=== PATIENT | female | born 1980 | race Caucasian/White ===

== ENCOUNTER → 2016-10-11 | Outpatient (CLI) | payer OTHER ==
[2016-07-04 19:25] VITALS: BP 113/58
[~2016-10-11] MED LIST: HYDR-971 PO; NAPR500T PO
[2016-10-11 12:11] LABS: HEMATOCRIT 39.4 % (36.0-47.0); HEMOGLOBIN 12.8 g/dL (12.0-15.5)
== END | disposition home or self-care (01) ==
LOC: LAB 10:38
PROVIDERS: ATTEND Family Medicine
DX: Z34.82 Encounter for supervision of other normal pregnancy, second trimester (principal)
CPT/HCPCS: 36415; 82950; 85014; 85018

== ENCOUNTER → 2016-10-25 | Outpatient (CLI) | payer OTHER ==
[2016-07-04 19:25] VITALS: BP 113/58
--- NOTE | 2016-10-25 11:26 | RAD ---
Exam performed: OB sonogram second trimester. History: Follow-up. Perigestational hemorrhage. Date of service: 10/25/16. Comparison: Limited OB ultrasound from 09/20/16. Technique: Transabdominal. Findings: Single intrauterine fetus is seen in breech presentation. maturity is as follows. BPD measures 7.32 cm corresponding to 29 weeks and 3 days. Head circumference 26.74 cm corresponding to 29 weeks and 1 day Abdominal circumference 24.25 cm corresponding to 28 weeks 4 days Femur length measures 5.43 cm corresponding to 28 weeks and 5 days. Composite maturity is 29 weeks and 0 days with a EDC of 01/10/27. age based on LMP of 04/11/16 is 28 weeks and 1 day with a EDC of 01/20/17. heart rate measures 1 65 bpm. Cervix length measures 4.3 cm. Placenta is anterior. Adequate amniotic fluid volume with MEHDI of 15.6 cm. A small perigestational hemorrhage is redemonstrated which measures 2 mm in AP dimension and approximately 7 cm in length and is unchanged. Impression: 1. Single live intrauterine fetus is seen in breech presentation of maturity 29 weeks and 0 days with a heart rate of 1 65 bpm. 2. Small lucy gestational hemorrhage appears similar.
== END | disposition home or self-care (01) ==
LOC: US 09:43
PROVIDERS: ATTEND Family Medicine
DX: Z34.82 Encounter for supervision of other normal pregnancy, second trimester (principal); Z3A.29 29 weeks gestation of pregnancy
CPT/HCPCS: 76805

== ENCOUNTER → 2016-12-02 | Outpatient (CLI) | payer OTHER ==
[2016-07-04 19:25] VITALS: BP 113/58
--- NOTE | 2016-12-02 09:45 | RAD ---
EXAM: Obstructive ultrasound. HISTORY: High-risk . Decreased amniotic fluid index. COMPARISON: 11/29/2016. FINDINGS: Sonographic evaluation of the uterus and fetus was performed transabdominally. There is a single fetus in vertex presentation. Estimated gestational age based on measurements is 34 weeks 0 days. heart rate is 145 bpm. Estimated weight is 2325 g. Individual measurements are commensurate. The placenta is anterior and grade 2/3. Amniotic fluid index is 12.3 cm. Intracranial images reveal no hydrocephalus. Images of the kidneys reveal no hydronephrosis. The renal collecting systems measure 4 mm bilaterally. The bladder is distended and was not noted in the during the examination. No keyhole sign is seen. The stomach is visualized. The heart is four-chamber. IMPRESSION: 1. Single fetus in vertex presentation. Estimated gestational age based on measurements 34 weeks 0 days. heart rate 145 bpm. 2. Amniotic fluid index 12.3 cm. 2. The bladder is mildly distended and did not empty during the study. No keyhole sign is appreciable. Attention on further follow-up. No hydronephrosis.
== END | disposition home or self-care (01) ==
LOC: US 07:44
PROVIDERS: ATTEND Family Medicine
DX: O28.8 Other abnormal findings on antenatal screening of mother (principal); R51 Headache; Z3A.34 34 weeks gestation of pregnancy
CPT/HCPCS: 76816

== ENCOUNTER 2017-01-16 15:46 | Day surgery (SDC) | payer OTHER ==
[~2017-01-16] VITALS: Ht 170.2 cm; Wt 61.2 kg
[~2017-01-16 15:46] MED LIST changes: +CEFAZOLIN 2GM PREMIX 50 ML IV PRN; +FENTANYL PF 100 MCG/2 ML VIAL. IV PRN; +HYDROMORPHONE 2 MG/ML VIAL. IV PRN; +IV RINGERS,LACTATED 1000ML 1,000 ML IV SCH; +LIDOCAINE 1% 1 ML SYRINGE. ID PRN; +MORPHINE SULFATE 2 MG/ML DISP.SYRIN. IV PRN; +ONDANSETRON PF 4 MG/2 ML VIAL. IV PRN; +PROCHLORPERAZINE 10 MG/2 ML VIAL. IV PRN
[2017-01-16] MEDS ORDERED: OXYTOCIN 10 UNIT/ML VIAL. ONE (16:35)
[2017-01-16] MEDS ORDERED: VASOPRESSIN 20 UNIT/ML VIAL. ONE (16:35)
[2017-01-16] MEDS ORDERED: LIDOCAINE 1% PF 5 ML VIAL. ONE (17:04)
[2017-01-16] MEDS ORDERED: PROPOFOL 20 ML IV ONE (17:04)
[2017-01-16] MEDS ORDERED: FENTANYL PF 100 MCG/2 ML VIAL. ONE (17:04)
[2017-01-16] MEDS ORDERED: SEVOFLURANE UP TO 15 MINUTES. IH ONE (17:40)
[2017-01-16] MEDS ORDERED: DEXAMETHASONE SOD PHOS 20 MG/5 ML VIAL. ONE (17:40)
[2017-01-16] MEDS ORDERED: ONDANSETRON PF 4 MG/2 ML VIAL. ONE (17:40)
--- NOTE | 2017-01-16 18:02 | PDOC ---
BRIEF OPERATIVE NOTE Pre-Op Diagnosis Retained placenta Post-Op Diagnosis Same Procedure Performed Suction D&C Surgeon Dr. Alexander Anesthesia Type: General Blood Loss 100 ml Specimens Obtained retained placenta and blood products Findings uterus with retained placenta Complications none Additional Remarks pt. YOLIE Priest Jr, MD Jan 16, 2017 18:02
--- NOTE | 2017-01-16 18:03 | DISCH ---
DISCHARGE INSTRUCTIONS Condition on Discharge Condition on Discharge: Stable Activity After Discharge Activity Instructions for Disc: Activity as tolerated Lifting Instructions after Dis: No heavy lifting Driving Instructions after Dis: Do not drive today Diet after Discharge Diet after Discharge: Regular Contacting the DRTimothy after DC Call your doctor for: Concerns you may have Follow-Up Follow up with: Dr. Alexander in 1 week. YOLIE ALEXANDER Jr, MD Jan 16, 2017 18:03
[2017-01-16] MEDS: FENTANYL PF 100 MCG/2 ML VIAL. IV PRN ×2 (18:30→18:44)
[2017-01-16] MEDS ORDERED: OXYC-323 PO (19:00)
[2017-01-16] MEDS ORDERED: OXYCODONE/APAP 5/325 TABLET. PO ONE (19:15)
[2017-01-16 19:50] VITALS: BP 103/66
--- NOTE | 2017-01-16 22:58 | OP ---
DATE OF SURGERY: PREOPERATIVE DIAGNOSIS: Retained placenta. POSTOPERATIVE DIAGNOSIS: Retained placenta. PROCEDURE: Suction D and C. SURGEON: Yolie Alexander M.D. ANESTHESIA: GETA. ESTIMATED BLOOD LOSS: 100 mL. COMPLICATIONS: None. FINDINGS: Retained placenta and blood products. SUMMARY: A 36-year-old who is 4-5 weeks status post vaginal delivery who continued to have off and on vaginal bleeding. Pelvic sonogram indicated retained placental products. She was counseled on the need for a suction D and C, risks, benefits and expectations and voiced a clear understanding to proceed. DESCRIPTION OF PROCEDURE: The patient was taken to surgery suite and placed in dorsal lithotomy position, was prepped with Betadine solution for vaginal prep, draped in sterile fashion. After adequate anesthesia, weighted speculum and curved Ev placed vaginally. Anterior lip of the cervix grasped with a single tooth tenaculum. Cervix was dilated with Magda dilators up to size 8 curved tip. Suction curette was utilized with pressure of 60 cm of mercury rotated in a circular fashion, removing blood products as well as placental tissue that was retained from delivery. Sharp curettage took place until a fine gritty surface was palpated circumferentially. Suction curet was passed once again to remove additional blood products and tissue. The single-toothed tenaculum was then removed. Uterus palpated firm. A 10 units of Pitocin were added to the IV fluids, weighted speculum was removed as well. The patient tolerated procedure well and was taken to recovery room in stable condition. Sponge and needle count correct x 3. YOLIE ALEXANDER MD DR: VINH/jamil JOB#: [id number] / [id number]
== END 2017-01-16 20:00 | disposition home or self-care (01) ==
LOC: SURG 15:46
PROVIDERS: ATTEND Obstetrics & Gynecology
DX: O73.0 Retained placenta without hemorrhage (principal); Z87.442 Personal history of urinary calculi
CPT/HCPCS: 59820; J0690; J1100; J2405; J2590; J2704; J3010; J3490

== ENCOUNTER → 2017-02-07 | Outpatient (CLI) | payer OTHER ==
[2017-01-16 19:50] VITALS: BP 103/66
[~2017-02-07] MED LIST changes: -CEFAZOLIN 2GM PREMIX 50 ML IV PRN; -FENTANYL PF 100 MCG/2 ML VIAL. IV PRN; -HYDROMORPHONE 2 MG/ML VIAL. IV PRN; -IV RINGERS,LACTATED 1000ML 1,000 ML IV SCH; -LIDOCAINE 1% 1 ML SYRINGE. ID PRN; -MORPHINE SULFATE 2 MG/ML DISP.SYRIN. IV PRN; -ONDANSETRON PF 4 MG/2 ML VIAL. IV PRN; +OXYC-323 PO; -PROCHLORPERAZINE 10 MG/2 ML VIAL. IV PRN
[2017-02-07 11:01] LABS: ALBUMIN 3.5 g/dL (3.4-5.0); ALBUMIN/GLOBULIN RATIO 0.9 (1.0-1.7); CALCIUM 8.9 mg/dL (8.5-10.1); CREATININE 0.8 mg/dL (0.6-1.0); GFR 82.1; POTASSIUM 4.1 mmol/L (3.5-5.1); TOTAL BILIRUBIN 0.5 mg/dL (0.2-1.0); TOTAL PROTEIN 7.2 g/dL (6.4-8.2)
== END | disposition home or self-care (01) ==
LOC: LAB 09:14
PROVIDERS: ATTEND Family Medicine
DX: O26.613 Liver and biliary tract disorders in pregnancy, third trimester (principal)
CPT/HCPCS: 36415; 80053

== ENCOUNTER 2017-04-12 09:15 | Emergency (ER) | payer OTHER ==
[~2017-04-12] VITALS: Ht 170.2 cm; Wt 54.4 kg
--- NOTE | 2017-04-12 09:22 | PHYS DOC ---
Past Medical History Past Medical History: Other Additional Past Medical Histor: Kidney Stones Past Surgical History: Other Additional Past Surgical Histo: ovarian cyst, D&C February 2016 Alcohol Use: None Drug Use: None Adult General Chief Complaint Chief Complaint: SORE THROAT HPI HPI Patient is a 37 year old female who presents with sore throat, strep teeth fevers, nausea. She states her symptoms started to 3 days ago. She states she feels pressure in her ears, she feels hot and cold at times but has not had chance to check her temperature. She states it hurts when she tries to swallow but she's not having troubles breathing, denies any change in her voice. She is worried about strep throat. She denies any nuchal rigidity or confusion. Review of Systems Review of Systems Constitutional: Denies fever or chills [] Eyes: Denies change in visual acuity, redness, or eye pain [] HENT: Denies nasal congestion, positive for sore throat [] Respiratory: Denies cough or shortness of breath [] Cardiovascular: No additional information not addressed in HPI [] GI: Denies abdominal pain, nausea, vomiting, bloody stools or diarrhea [] : Denies dysuria or hematuria [] Musculoskeletal: Denies back pain or joint pain [] Integument: Denies rash or skin lesions [] Neurologic: Denies headache, focal weakness or sensory changes [] Endocrine: Denies polyuria or polydipsia [] Current Medications Current Medications Current Medications Medications (Trade) Dose Ordered Sig/Deisy Start Time Stop Time Status Last Admin Dose Admin Ondansetron HCl (Zofran Odt) 4 mg 1X ONCE 04/12/17 09:45 04/12/17 09:46 DC 04/12/17 09:42 4 MG Penicillin G Benzathine (Bicillin L-A) 1,200,000 unit 1X ONCE 04/12/17 10:00 04/12/17 10:01 DC 04/12/17 09:56 1,200,000 UNIT Allergies Allergies Allergies Coded Allergies Type Severity Reaction Last Updated Verified No Known Drug Allergies 01/13/17 No Physical Exam Physical Exam Constitutional: Well developed, well nourished, no acute distress, non-toxic appearance. [] HENT: Normocephalic, atraumatic, bilateral external ears normal, oropharynx moist, no oral exudates, nose normal. Posterior pharynx erythematous, no exudates appreciated, tender to palpation over the right submandibular lymph node Eyes: PERRLA, EOMI, conjunctiva normal, no discharge. [] Neck: Normal range of motion, no tenderness, supple, no stridor. [] Cardiovascular:Heart rate regular rhythm, no murmur [] Lungs & Thorax: Bilateral breath sounds clear to auscultation [] Abdomen: Bowel sounds normal, soft, no tenderness, no masses, no pulsatile masses. [] Skin: Warm, dry, no erythema, no rash. [] Back: No tenderness, no CVA tenderness. [] Extremities: No tenderness, no cyanosis, no clubbing, ROM intact, no edema. [] Neurologic: Alert and oriented X 3, normal motor function, normal sensory function, no focal deficits noted. [] Psychologic: Affect normal, judgement normal, mood normal. [] Current Patient Data Vital Signs Vital Signs Date Time Temp Pulse Resp B/P (MAP) Pulse Ox O2 Delivery O2 Flow Rate FiO2 04/12/17 09:25 97.7 106 14 98 Room Air 97.7 EKG EKG [] Radiology/Procedures Radiology/Procedures [] Impressions: Strep pharyngitis Course & Med Decision Making Course & Med Decision Making Pertinent Labs and Imaging studies reviewed. (See chart for details) Vitals are stable, she does not appear to be ill appearing. Her throat is positive, we'll treat with 1.2 million units of Bicillin, 8 mg by mouth Decadron , ODT Zofran and send her home with a prescription for ODT Zofran. Return precautions given she is agreeable Plan B discharged in stable condition this time. Dragon Disclaimer Dragon Disclaimer This electronic medical record was generated, in whole or in part, using a voice recognition dictation system. Departure Departure Impression: Primary Impression: Strep pharyngitis Disposition: 01 HOME, SELF-CARE Condition: STABLE Referrals: ALVINA ARCINIEGA MD (PCP) Patient Instructions: Strep Throat Additional Instructions: You were seen today for your sore throat and it is positive for strep. Your given a shot of penicillin, and also 8 mg of Decadron which is a steroid.. This should help you resolved your symptoms sooner. Turn the ER for continued pain, fevers, uncontrolled nausea or vomiting. Your being discharged with prescription of oral dissolvable tablets of Zofran to help with her nausea. Scripts Ondansetron Hcl (ZOFRAN) 4 Mg Tablet 1 TAB PO PRN Q6-8HRS, #5 TAB Prov: TRELL BARNETT MD 04/12/17 TRELL BARNETT MD Apr 12, 2017 09:22
[2017-04-12 09:25] VITALS: BP 101/72
[2017-04-12] MEDS ORDERED: ONDANSETRON ODT 4 MG TAB.RAPDIS. PO ONE (09:45)
[2017-04-12] MEDS ORDERED: PENICILLIN G BENZATHINE LA 1,200,000 UNIT/2 ML DISP.SYRIN. IM ONE (10:00)
[2017-04-12] MEDS ORDERED: ONDA4TAB7 PO (10:13)
[2017-04-12 10:17] LABS: NEGATIVE OBC STREP NEG; POSITIVE OBC STREP POS
[2017-04-12] MEDS ORDERED: DEXAMETHASONE 4 MG TABLET PO STA (10:18)
== END 2017-04-12 10:30 | disposition home or self-care (01) ==
LOC: ER 09:15
DX: J02.0 Streptococcal pharyngitis (principal); Z87.442 Personal history of urinary calculi
CPT/HCPCS: 87880; 96372; 99283; J0561; J8540; Q0162

== ENCOUNTER 2017-10-19 07:34 | Day surgery (SDC) | payer OTHER ==
[2017-10-19] MEDS: IV RINGERS,LACTATED 1000ML 1,000 ML IV ×2 (07:00→11:20)
[~2017-10-19 07:34] MED LIST changes: -HYDR-971 PO; +HYDROmorphone 2 MG/ML VIAL IV; +LIDOCAINE 1% PF 2 ML VIAL. ID; +MORPHINE SULFATE 2 MG/ML DISP.SYRIN. IV; -NAPR500T PO; +ONDANSETRON PF 4 MG/2 ML VIAL. IV; -OXYC-323 PO; +PROCHLORPERAZINE 10 MG/2 ML VIAL. IV; +fentaNYL PF VIAL 100 MCG/2 ML VIAL IV
[2017-10-19 08:18] LABS: NEG OBC UR NEG; POS OBC UR POS; U PREG PATIENT NEGATIVE (NEG)
[2017-10-19] MEDS ORDERED: ONDANSETRON PF 4 MG/2 ML VIAL. (09:30)
[2017-10-19] MEDS ORDERED: DEXAMETHASONE SOD PHOS 20 MG/5 ML VIAL. (09:30)
[2017-10-19] MEDS ORDERED: MIDAZOLAM HCL/PF 2 MG/2 ML VIAL. (09:30)
[2017-10-19] MEDS ORDERED: PROPOFOL 20 ML IV (09:30)
[2017-10-19] MEDS ORDERED: fentaNYL PF VIAL 100 MCG/2 ML VIAL (09:30)
[2017-10-19] MEDS ORDERED: FAMOTIDINE 20 MG/2 ML VIAL (10:32)
[2017-10-19] MEDS ORDERED: KETOROLAC 30 MG/ML INJ FOR OR. INJ (10:32)
[2017-10-19] MEDS ORDERED: PHENYLEPHRINE in 0.9% NACL PF 1 MG/10 ML SYRINGE. IV (10:32)
[2017-10-19] MEDS ORDERED: SEVOFLURANE 31 TO 60 MINUTES. IH (10:47)
[2017-10-19] MEDS: SILVER NITRATE STICK TP (10:50)
[2017-10-19] MEDS: oxyCODONE/APAP 5/325 1 TAB TABLET PO (11:59)
== END 2017-10-19 12:40 | disposition home or self-care (01) ==
LOC: SURG 07:34
DX: N93.8 Other specified abnormal uterine and vaginal bleeding (principal); Z87.442 Personal history of urinary calculi
CPT/HCPCS: 58558; 81025; 88305; J0690; J1100; J1885; J2250; J2370; J2405; J2704; J3010; S0028

== ENCOUNTER → 2018-04-17 | Outpatient (CLI) | payer OTHER ==
[2017-10-19 12:05] VITALS: BP 105/66
[~2018-04-17] MED LIST changes: +HYDR-971 PO; -HYDROmorphone 2 MG/ML VIAL IV; -LIDOCAINE 1% PF 2 ML VIAL. ID; -MORPHINE SULFATE 2 MG/ML DISP.SYRIN. IV; +NAPR-683 PO; +ONDA4TAB7 PO; -ONDANSETRON PF 4 MG/2 ML VIAL. IV; +OXYC-323 PO; -PROCHLORPERAZINE 10 MG/2 ML VIAL. IV; -fentaNYL PF VIAL 100 MCG/2 ML VIAL IV
[2018-04-17 11:31] LABS: ALBUMIN 3.7 g/dL (3.4-5.0); DIRECT BILIRUBIN 0.1 mg/dL (0.0-0.2); TOTAL BILIRUBIN 0.3 mg/dL (0.2-1.0); TOTAL PROTEIN 7.6 g/dL (6.4-8.2)
== END | disposition home or self-care (01) ==
LOC: LAB 10:27
PROVIDERS: ATTEND Family Medicine
DX: E05.90 Thyrotoxicosis, unspecified without thyrotoxic crisis or storm (principal); Z68.1 Body mass index [BMI] 19.9 or less, adult
CPT/HCPCS: 36415; 80076; 82607; 84436; 84443

== ENCOUNTER → 2018-08-14 | Outpatient (CLI) | payer OTHER ==
[2017-10-19 12:05] VITALS: BP 105/66
[~2018-08-14] MED LIST changes: +HYDR-3164 PO; -HYDR-971 PO
[2018-08-14 12:53] LABS: BASO % 0 % (0-3); EOS # 0.3 x10^3/uL (0.0-0.7); EOS % 4 % (0-3); HEMATOCRIT 45.7 % (36.0-47.0); HEMOGLOBIN 15.6 g/dL (12.0-15.5); LYMPH # 1.9 x10^3/uL (1.0-4.8); LYMPH % 21 % (24-48); MEAN CORPUSCULAR HEMOGLOBIN 29 pg (25-35); MEAN CORPUSCULAR HGB CONC 34 g/dL (31-37); MEAN CORPUSCULAR VOLUME 86 fL (79-100); MONO # 0.4 x10^3/uL (0.0-1.1); MONO % 4 % (0-9); NEUT # 6.3 x10^3uL (1.8-7.7); NEUT % 71 % (31-73); PLATELET COUNT 180 x10^3/uL (140-400); RED BLOOD COUNT 5.32 x10^6/uL (3.50-5.40); RED CELL DISTRIBUTION WIDTH 13.2 % (11.5-14.5); WHITE BLOOD COUNT 8.9 x10^3/uL (4.0-11.0)
[2018-08-14 13:11] LABS: ALBUMIN 4.5 g/dL (3.4-5.0); ALBUMIN/GLOBULIN RATIO 1.2 (1.0-1.7); CALCIUM 9.8 mg/dL (8.5-10.1); CREATININE 0.8 mg/dL (0.6-1.0); GFR 81.2; POTASSIUM 4.2 mmol/L (3.5-5.1); TOTAL BILIRUBIN 0.6 mg/dL (0.2-1.0); TOTAL PROTEIN 8.2 g/dL (6.4-8.2)
[2018-08-14 13:19] LABS: FREE T4 1.01 ng/dL (0.76-1.46); THYROID STIM HORMONE (TSH) 0.963 uIU/mL (0.358-3.74)
== END | disposition home or self-care (01) ==
LOC: LAB 12:16
PROVIDERS: ATTEND Family Medicine
DX: E05.90 Thyrotoxicosis, unspecified without thyrotoxic crisis or storm (principal); R00.2 Palpitations
CPT/HCPCS: 36415; 80053; 82607; 84439; 84443; 85025

== ENCOUNTER → 2018-11-22 | Outpatient (CLI) | payer OTHER ==
[2018-10-28 22:05] VITALS: BP 140/77
[~2018-11-22] MED LIST changes: -OXYC-323 PO; +OXYC1TAB15 PO
--- NOTE | 2018-11-22 11:45 | CARD ---
MR#: [id number] Date of Study: 11/22/2018 Ordering Physician: YESSY WINTER, Referring Physician: YESSY WINTER Tech: Caprice Ahuja RDCS APPROVED REPORT EXAM: Two-dimensional and M-mode echocardiogram with Doppler and color Doppler. Other Information Quality : AverageHR: 76bpm Rhythm : NSR INDICATION Palpitations 2D DIMENSIONS RVDd2.9 (2.9-3.5cm)Left Atrium(2D)2.5 (1.6-4.0cm) IVSd0.5 (0.7-1.1cm)Aortic Root(2D)2.5 (2.0-3.7cm) LVDd4.8 (3.9-5.9cm)LVOT Diameter1.9 (1.8-2.4cm) PWd0.6 (0.7-1.1cm)LVDs3.5 (2.5-4.0cm) FS (%) 28.2 %SV59.7 ml LVEF(%)54.4 (>50%) Aortic Valve AoV Peak Addy.124.3cm/sAoV VTI21.5cm AO Peak GR.6.2mmHgLVOT Peak Addy.103.4cm/s AO Mean GR.2mmHgAVA (VMAX)2.47cm2 RAHUL (VTI)2.50cm2 Mitral Valve MV E Gedhhlby13.8cm/sMV DECEL [id number] MV A Okksixmk45.4cm/sE/A Ratio1.6 MV A [id number] Pulmonary Valve PV Peak Fxrmjfvg90.0cm/s LEFT VENTRICLE The left ventricle is normal size. There is normal left ventricular wall thickness. The left ventricu lar systolic function is normal. The Ejection Fraction is 55-60%. There is normal LV segmental wall m otion. The left ventricular diastolic function and filling is normal for age. RIGHT VENTRICLE The right ventricle is normal size. There is normal right ventricular wall thickness. The right ventr icular systolic function is normal. ATRIA The left atrium size is normal. The right atrium size is normal. The interatrial septum is intact wit h no evidence for an atrial septal defect or patent foramen ovale as noted on 2-D or Doppler imaging. AORTIC VALVE The aortic valve is normal in structure and function. The aortic valve is trileaflet. Doppler and Col or Flow revealed no significant aortic regurgitation. There is no significant aortic valvular stenosi s. MITRAL VALVE The mitral valve is thickened but opens well. A borderline mitral valve prolapse is present. There is no mitral valve stenosis. Doppler and Color-flow revealed trace mitral regurgitation. TRICUSPID VALVE The tricuspid valve is normal in structure and function. Doppler and Color Flow revealed no tricuspid valve regurgitation noted. There is no tricuspid valve prolapse or vegetation. There is no tricuspid valve stenosis. PULMONIC VALVE The pulmonary valve is normal in structure and function. Doppler and Color Flow revealed no pulmonic valvular regurgitation. There is no pulmonic valvular stenosis. GREAT VESSELS The aortic root is normal in size. The ascending aorta is normal in size. The IVC is normal in size a nd collapses >50% with inspiration. PERICARDIAL EFFUSION There is no evidence of significant pericardial effusion. Critical Notification Critical Value: No <Conclusion> The left ventricular systolic function is normal. The Ejection Fraction is 55-60%. There is normal LV segmental wall motion. Trace mitral regurgitation. There is no evidence of significant pericardial effusion. Signed by : Yessy Winter, Electronically Approved : 11/22/2018 11:44:33
== END | disposition home or self-care (01) ==
LOC: ECHO 09:41
PROVIDERS: ATTEND Internal Medicine Cardiovascular Disease
DX: R00.2 Palpitations (principal)
CPT/HCPCS: 93306

== ENCOUNTER → 2019-08-13 | Outpatient (CLI) | payer OTHER ==
[2018-10-28 22:05] VITALS: BP 140/77
== END | disposition home or self-care (01) ==
LOC: SPEC 11:40
PROVIDERS: ATTEND Obstetrics & Gynecology
DX: Z01.419 Encounter for gynecological examination (general) (routine) without abnormal findings (principal)
CPT/HCPCS: 88175

== ENCOUNTER → 2019-09-02 | Outpatient (CLI) | payer OTHER ==
[2018-10-28 22:05] VITALS: BP 140/77
[~2019-09-02] MED LIST changes: +IOHEXOL 300 MG/ML 100ML VIAL. INT CAT ONE
--- NOTE | 2019-09-02 07:55 | RAD ---
Examination: PELVIS W/TV History: Pelvic pain Comparison/Correlation: None Findings: Transabdominal and transvaginal pelvic ultrasound exam was performed. Transvaginal technique was utilized to better assess the adnexal structures. Uterus measures 6.7 cm x 5.2 cm x 2.8 cm. Myometrium is unremarkable. Endometrial thickness is 1.1 cm noted. Minimal fluid is present within the endometrial cavity. Right ovary measures 3.8 cm x 1.7 cm by 1.6 cm left ovary measures 2.9 cm x 2 cm x 2.1 cm. Ovarian flow bilaterally is evident. Adnexal follicles are present bilaterally measuring up to 1.5 cm. No pelvic free fluid. Impression: Small amount of fluid in the endometrial cavity of indeterminate significance. No intrauterine gestation identified. Adnexal follicles or physiologic in appearance. Electronically signed by: Zacarias Craig MD (09/02/2019 7:52 AM) [facility]
[2019-09-02 09:19] LABS: PREG TEST PT QUAL NEGATIVE (NEG)
--- NOTE | 2019-09-02 12:54 | RAD ---
Examination: HYSTEROSALPINGOGRAM W/INJ History: Irregular menses. Asherman's syndrome. Comparison/Correlation: 09/02/2019 pelvic ultrasound exam Findings: Risks and benefits of hysterosalpingography were discussed with the patient and informed consent was obtained. Fluoroscopy was utilized for 1 minute. A total of 9 images were acquired. Preliminary image demonstrates radiopaque density involving the left pelvic region. Correlate with previous intervention. Cleansing with Betadine was performed at the external genitalia. Speculum was placed into the vagina. Cleansing was then performed about the cervical os with Betadine coated swabs and with gauze soaked with Betadine. Catheter was placed into the cervical os. The balloon was inflated with fluid. Then, contrast was injected into the uterine cavity. Spillage of contrast into the right and left fallopian tubes and peritoneal cavity bilaterally as well delineated. The uterine volume is small in size. Irregular contour of the internal lining of the fallopian tubes is evident distally. No occlusive or significant filling defects identified within the uterine cavity upon deflation the balloon and removal of the catheter. Contrast is noted to follow along the course of the cervical os into vagina upon removal of the catheter. Impression: Fallopian tubes are patent although somewhat irregular contour is noted within the fallopian tube intraluminally bilaterally. Uterine volume is small although no significant filling defects are evident. No definite septations evident. Electronically signed by: Zacarias Craig MD (09/02/2019 12:51 PM) [facility]
== END | disposition home or self-care (01) ==
LOC: US 06:45
PROVIDERS: ATTEND Obstetrics & Gynecology
DX: N85.6 Intrauterine synechiae (principal); N92.6 Irregular menstruation, unspecified
CPT/HCPCS: 58340; 74740; 76830; 76856; 84703; Q9967

== ENCOUNTER → 2019-09-30 | Outpatient (CLI) | payer OTHER ==
[2018-10-28 22:05] VITALS: BP 140/77
[~2019-09-30] MED LIST changes: -IOHEXOL 300 MG/ML 100ML VIAL. INT CAT ONE
[2019-09-30 08:44] LABS: BASO % 0 % (0-3); EOS # 0.2 x10^3/uL (0.0-0.7); EOS % 5 % (0-3); HEMATOCRIT 47.7 % (36.0-47.0); HEMOGLOBIN 15.9 g/dL (12.0-15.5); LYMPH # 1.5 x10^3/uL (1.0-4.8); LYMPH % 29 % (24-48); MEAN CORPUSCULAR HEMOGLOBIN 29 pg (25-35); MEAN CORPUSCULAR HGB CONC 33 g/dL (31-37); MEAN CORPUSCULAR VOLUME 87 fL (79-100); MONO # 0.2 x10^3/uL (0.0-1.1); MONO % 4 % (0-9); NEUT # 3.2 x10^3/uL (1.8-7.7); NEUT % 62 % (31-73); PLATELET COUNT 176 x10^3/uL (140-400); RED BLOOD COUNT 5.51 x10^6/uL (3.50-5.40); RED CELL DISTRIBUTION WIDTH 13.4 % (11.5-14.5); WHITE BLOOD COUNT 5.2 x10^3/uL (4.0-11.0)
[2019-09-30 08:58] LABS: ALBUMIN 4.4 g/dL (3.4-5.0); ALBUMIN/GLOBULIN RATIO 1.2 (1.0-1.7); CALCIUM 9.2 mg/dL (8.5-10.1); CREATININE 0.8 mg/dL (0.6-1.0); GFR 80.7; POTASSIUM 3.8 mmol/L (3.5-5.1); TOTAL BILIRUBIN 0.5 mg/dL (0.2-1.0)
[2019-09-30 09:04] LABS: CHOLESTEROL/HDL RATIO 3.2
== END | disposition home or self-care (01) ==
LOC: LAB 07:53
PROVIDERS: ATTEND Family Medicine
DX: Z00.00 Encounter for general adult medical examination without abnormal findings (principal)
CPT/HCPCS: 36415; 80053; 80061; 84443; 85025